=== PATIENT | female | born 1940 | race Two or more races ===

== ENCOUNTER 2025-06-26 17:11 | Inpatient (IN) | payer OTHER ==
[~2025-06-26] VITALS: Ht 152.4 cm; Wt 38.6 kg
--- NOTE | 2025-06-26 17:30 | NUR ---
SE RECIBE A PTE EN AMBULANCIA. PTE ALERTA Y ORIENTADA X3. REFIERE SOB. SE OBSERVA A PTE CON BUEN PATRON RESPIRATORIO HABLANDO EN ORACIONES COMPLETAS. PARAMEDICOS REFIEREN LE ADMINISTRARON LASIX 10MG, PROTONIX 40MG, ZOFRAN 4MG, ALBUTEROL/IPATROPIUM.
[2025-06-26] MEDS ORDERED: LEVALBUTEROL HCL 0.63 MG/3 ML SOLUTION IH ONE ×2 (18:15→18:41)
--- NOTE | 2025-06-26 18:42 | NUR ---
SE EDUCA A PACIENTE SOBRE ORDENES MEDICAS, SE REALIZA VENOPUNCION PARA COLECTAR MUESTRAS DE JUDE Y SE CANALIZA VENA PARA OBTENER ACCESO VENOSO PARA ADMINISTRACION DE FLUIDOS. SE INSERTA VIDAL NUMER 16 BAJO MEDIDAS ESTERILES PACIENTE TOLERA PROCEDIMIENTO.
[2025-06-26 18:45] LABS: BASO % 0.2 % (0.1-1.2); EOS # 0.01 (0.04-0.54); EOS % 0.2 % (0.7-7.0); LYMPH # 0.67 (1.18-3.74); LYMPH % 10.1 % (19.3-53.1); MEAN PLATELET VOLUME 10.90 fl (9.4-12.4); MONO # 0.63 (0.24-0.82); MONO % 9.5 % (4.7-12.5); NEUT # 5.29 (1.56-6.13); NEUT % 79.7 % (34.0-71.1); RED CELL DISTRIBUTION WIDTH 16.9 % (11.6-14.4)
[2025-06-26 19:12] LABS: ALT/SGPT 93.0 U/L (12-78); AST/SGOT 101.0 U/L (15-37); BILIRUBIN TOTAL 1.26 mg/dL (0.3-1.2); BUN CREA RATIO 22.0 (7.0-25.0); CREATININE SERUM 1.73 mg/dL (0.55-1.02); GFR 28.06; GLOBULINA 4.0 G/DL (2.4-3.5); GLUCOSE FASTING 113.0 mg/dL (65-100); OSMOLALITY SERUM 293.0 MOSM/KG (275-295)
[2025-06-26 19:25] LABS: INR 2.18
[2025-06-26 19:33] LABS: ABG PH 7.359 (7.35-7.45); BICARBONATE 19.3 mmol/l (23-25); o2 21 %
[2025-06-26 19:34] LABS: ABG PO2 69.6 mmHg (80-100)
[2025-06-26 20:08] LABS: URINE APPEARANCE Clear; URINE BILIRRUBIN Negative (NEGATIVE); URINE BLOOD Negative; URINE COLOR Yellow; URINE GLUCOSE Negative (NEGATIVE); URINE KETONE Negative (NEGATIVE); URINE LEUKOCYTE Negative; URINE NITRATE Negative; URINE PROTEIN Negative (NEGATIVE); URINE UROBILINOGEN 0.2 E.U./dl
[2025-06-26 20:11] LABS: URINE BACTERIA 23.9 uL (0.0-1933); URINE EPITHELIAL CELLS 3.3 uL (0.0-38.8); URINE RBC 9.8 uL (0.0-20.8); URINE WBC 7.6 uL (0.0-23.2)
[2025-06-26 20:28] LABS: URINE CAST 1.17 uL (0.0-1.40)
[2025-06-26 20:30] LABS: URINE YEAST NEGATIVE /hpf
[2025-06-26] MEDS ORDERED: ATORVASTATIN CALCIUM 40 MG TABLET PO SCH (20:46)
[2025-06-26] MEDS ORDERED: PANTOPRAZOLE SODIUM 40 MG/VIAL VIAL IV SCH (20:49)
[2025-06-26] MEDS ORDERED: IPRATROPIUM BROMIDE 0.5 MG/2.5 ML AMPUL.NEB IH SCH (20:51)
[2025-06-26] MEDS ORDERED: ACETAMINOPHEN 500 MG GEL..CAP PO PRN (21:00)
[2025-06-26] MEDS ORDERED: ASPIRIN 325 MG TABLET.EC PO ONE ×2 (21:00→21:25)
[2025-06-26] MEDS ORDERED: NITROGLYCERIN IN 5 % DEXTROSE 250 ML IV SCH (21:00)
[2025-06-26] MEDS ORDERED: NITROGLYCERIN IN 5 % DEXTROSE 50 MG/250 ML BOTTLE IV ONE (21:26)
[2025-06-26 22:26] VITALS: BP 121/76; O2SAT 99
[2025-06-26 23:04] VITALS: BP 117/83; O2SAT 100
[2025-06-27] VITALS (13 sets, daily range): BP systolic 89–117; BP diastolic 66–86; O2SAT 100
[2025-06-27] MEDS ORDERED: IPRATROPIUM BROMIDE 0.5 MG/2.5 ML AMPUL.NEB IH ONE (00:44)
[2025-06-27] MEDS ORDERED: NITROGLYCERIN IN 5 % DEXTROSE 250 ML IV SCH (07:30)
[2025-06-27 08:05] LABS: INR 2.0
[2025-06-27 08:26] LABS: CHOL HDL RATIO 4.0 (0-5.0); HDL 26.0 mg/dl (40-60); LDL 68.0 mg/dl (0-130); TSH 1.77 uIU/mL (0.358-3.74); VLDL 11.0 (0-39)
[2025-06-27] MEDS ORDERED: ASPIRIN 81 MG TAB.CHEW PO SCH (09:00)
[2025-06-27] MEDS ORDERED: FAMOTIDINE/PF 20 MG in 0.9 % SODIUM CHLORIDE 8 ML IV PUSH SCH (09:00)
[2025-06-27] MEDS ORDERED: ENOXAPARIN SODIUM 30 MG/0.3 ML SYRINGE SUBCUTANEO SCH (09:00)
[2025-06-28] VITALS (16 sets, daily range): BP systolic 98–126; BP diastolic 65–82; O2SAT 94–100
[2025-06-28] MEDS ORDERED: IPRATROPIUM BROMIDE 0.5 MG/2.5 ML AMPUL.NEB IH ONE (00:23)
[2025-06-28 06:56] LABS: BASO % 0.1 % (0.1-1.2); EOS # 0.08 (0.04-0.54); EOS % 1.0 % (0.7-7.0); LYMPH # 0.65 (1.18-3.74); LYMPH % 8.1 % (19.3-53.1); MEAN PLATELET VOLUME 11.00 fl (9.4-12.4); MONO # 0.53 (0.24-0.82); MONO % 6.6 % (4.7-12.5); NEUT # 6.78 (1.56-6.13); NEUT % 84.0 % (34.0-71.1); RED CELL DISTRIBUTION WIDTH 16.8 % (11.6-14.4)
[2025-06-28 08:04] LABS: BUN CREA RATIO 26.0 (7.0-25.0); CREATININE SERUM 1.46 mg/dL (0.55-1.02); GFR 34.13; GLUCOSE FASTING 79.0 mg/dL (65-100); OSMOLALITY SERUM 291.0 MOSM/KG (275-295)
[2025-06-28] MEDS ORDERED: METOPROLOL SUCCINATE 25 MG TAB.SR.24H PO ONE (10:45)
[2025-06-29] VITALS (9 sets, daily range): BP systolic 105–114; BP diastolic 74–79; O2SAT 89–100
[2025-06-29 06:48] LABS: BUN CREA RATIO 27.0 (7.0-25.0); CREATININE SERUM 1.24 mg/dL (0.55-1.02); GFR 41.21; GLUCOSE FASTING 63.0 mg/dL (65-100); OSMOLALITY SERUM 287.0 MOSM/KG (275-295)
[2025-06-29] MEDS ORDERED: CARVEDILOL 6.25 MG TABLET PO SCH (09:00)
[2025-06-29] MEDS ORDERED: CLOPIDOGREL BISULFATE 75 MG TABLET PO SCH (09:00)
[2025-06-29] MEDS ORDERED: METOPROLOL SUCCINATE 25 MG TAB.SR.24H PO SCH (09:00)
[2025-06-30 00:18] VITALS: O2SAT 100
[2025-06-30 01:36] VITALS: BP 101/67; O2SAT 100
[2025-06-30 06:37] LABS: BUN CREA RATIO 27.0 (7.0-25.0); CREATININE SERUM 1.21 mg/dL (0.55-1.02); GFR 42.39; GLUCOSE FASTING 60.0 mg/dL (65-100); OSMOLALITY SERUM 283.0 MOSM/KG (275-295)
[2025-06-30 08:18] VITALS: BP 121/73; O2SAT 97
[2025-06-30 17:00] VITALS: BP 94/57; O2SAT 100
[2025-06-30 17:09] VITALS: O2SAT 97
[2025-06-30 21:16] VITALS: O2SAT 98
[2025-07-01 01:58] VITALS: BP 90/60; O2SAT 95
[2025-07-01 03:37] VITALS: O2SAT 100
[2025-07-01] MEDS ORDERED: PANTOPRAZOLE SODIUM 40 MG TABLET.DR PO SCH (09:00)
[2025-07-01 09:31] VITALS: BP 103/69; O2SAT 100
== END 2025-07-01 18:21 | disposition home or self-care (01) | DRG 280 ==
LOC: ER 17:11 → ICU-2 21:12 → MEDJ 06-28 10:59
PROVIDERS: General Practice; Internal Medicine Nephrology; ADMIT Student in an Organized Health Care Education/Training Program; ATTEND Student in an Organized Health Care Education/Training Program
PROC: B246ZZZ Ultrasonography of Right and Left Heart (ICD-10-PCS; principal; 2025-06-26)
PROC: 3E0F7GC Introduction of Other Therapeutic Substance into Respiratory Tract, Via Natural or Artificial Opening (ICD-10-PCS; 2025-06-26)
PROC: 4A12X4Z Monitoring of Cardiac Electrical Activity, External Approach (ICD-10-PCS; 2025-06-26)
PROC: 3E0F7SF Introduction of Other Gas into Respiratory Tract, Via Natural or Artificial Opening (ICD-10-PCS; 2025-06-26)
DX: I50.23 Acute on chronic systolic (congestive) heart failure (principal); J18.9 Pneumonia, unspecified organism; I21.4 Non-ST elevation (NSTEMI) myocardial infarction; I38 Endocarditis, valve unspecified; I13.0 Hypertensive heart and chronic kidney disease with heart failure and stage 1 through stage 4 chronic kidney disease, or unspecified chronic kidney disease; N17.9 Acute kidney failure, unspecified; I27.20 Pulmonary hypertension, unspecified; E78.5 Hyperlipidemia, unspecified; N18.9 Chronic kidney disease, unspecified; R60.0 Localized edema